=== PATIENT | male | born 1950 | race Caucasian/White ===

== ENCOUNTER 2021-11-30 09:36 | Observation (INO) ==
[2021-11-30 10:16] LABS: Bilirubin,Urine Negative (Negative); Blood,Urine Negative (Negative); Clarity,Urine Clear (Clear); Color,Urine Yellow (Yellow); Glucose,Urine (UA) 70 mg/dL (Normal); Ketones,Urine Trace mg/dL (Negative); Leukocyte Esterase,Urine Negative (Negative); Mucus,Urine Few per lpf (None-Few); Nitrite,Urine Negative (Negative); PH,Urine 5.5 pH Units (5.0-8.0); Protein,Urine 30 mg/dL (Neg-Trace); RBC,Urine 0-3 per hpf (0-3); Specific Gravity,Urine 1.029 (1.010-1.025); WBC,Urine 0-3 per hpf (0-3)
[2021-11-30 10:35] LABS: Basophils # 0.1 K/mcL (0.0-0.2); Basophils % 0.9 %; Eosinophils # 0.4 K/mcL (0.0-0.6); Eosinophils % 6.3 %; Hematocrit 22.2 % (37.5-50.1); Hemoglobin 6.7 g/dL (12.9-16.9); Immature Granulocytes % 0.4 % (0-4); Lymphocytes # 1.9 K/mcL (0.6-4.6); Lymphocytes % 34.8 %; Mean Corpuscular HGB Conc 30.2 g/dL (31.6-35.5); Mean Corpuscular Hemoglobin 30.2 pg (28.0-33.3); Mean Platelet Volume 9.3 fL (9.4-12.4); Monocytes # 0.5 K/mcL (0.0-1.3); Monocytes % 8.1 %; Neutrophils # 2.8 K/mcL (1.6-8.9); Platelet Count 218 K/mcL (140-400); Red Blood Count 2.22 M/mcL (4.19-5.50); Red Cell Distribution Width 14.8 % (11.5-14.5); Segmented Neutrophils % 49.5 %; White Blood Count 5.6 K/mcL (4.3-11.1)
[2021-11-30] MEDS ORDERED: Isovue-370 500 ML BOTTLE IVP ONE (10:38)
[2021-11-30 10:42] LABS: Prothrombin Time 11.3 Seconds (9.4-12.1)
[2021-11-30 10:58] LABS: BUN/Creatinine Ratio 19 (6-26); Blood Urea Nitrogen 25 mg/dL (8-23); Calcium 8.7 mg/dL (8.6-10.3); Carbon Dioxide 23 mEq/L (23-29); Chloride 108 mEq/L (98-107); Glucose 165 mg/dL (70-105); Osmolality,Calculated 294 (280-300); Potassium 4.7 mEq/L (3.5-5.1); Sodium 138 mEq/L (136-145); Troponin I < 0.03 ng/mL (< 0.04); eGFR For African Americans > 60 (> 60); eGFR For Non-African Americans 55 (> 60)
[2021-11-30] MEDS ORDERED: 0.9 % Sodium Chloride 250 ML ONE (12:01)
[2021-11-30] MEDS ORDERED: Melatonin 3 MG TABLET PO PRN (13:26)
[2021-11-30] MEDS ORDERED: Acetaminophen 325 MG TABLET PO PRN (13:26)
[2021-11-30] MEDS ORDERED: Ondansetron ODT 4 MG TAB.RAPDIS SL PRN (13:26)
[2021-11-30] MEDS ORDERED: Naloxone 0.4 MG/ML INJ IVP PRN (13:26)
[2021-11-30] MEDS ORDERED: *HR* Dextrose 50 % in Water (Syg) 50 ML SYRINGE IVP PRN (13:29)
[2021-11-30] MEDS ORDERED: D5% in Water 1,000 ML IVC PRN (13:29)
[2021-11-30] MEDS ORDERED: Dextrose 4 GM Chewable Tablets PO PRN ×2 (13:29)
[2021-11-30] MEDS: Insulin LISPRO 300 UNITS/3 ML VIAL SUBQ SCH (17:38)
[2021-11-30] MEDS ORDERED: Insulin LISPRO 300 UNITS/3 ML VIAL SUBQ SCH (18:00)
[2021-11-30] MEDS: Gabapentin 300 MG CAPSULE PO SCH (21:10)
[2021-12-01 05:24] VITALS: TEMP 98.1
[2021-12-01 06:16] LABS: Basophils # 0.1 K/mcL (0.0-0.2); Basophils % 1.2 %; Eosinophils # 0.3 K/mcL (0.0-0.6); Eosinophils % 6.1 %; Hematocrit 27.8 % (37.5-50.1); Immature Granulocytes % 0.4 % (0-4); Lymphocytes # 1.8 K/mcL (0.6-4.6); Mean Corpuscular Hemoglobin 30.5 pg (28.0-33.3); Mean Corpuscular Volume 95.2 fL (83.0-100.0); Monocytes # 0.4 K/mcL (0.0-1.3); Monocytes % 8.7 %; Neutrophils # 2.3 K/mcL (1.6-8.9); Platelet Count 198 K/mcL (140-400); Red Blood Count 2.92 M/mcL (4.19-5.50); Red Cell Distribution Width 15.4 % (11.5-14.5); Segmented Neutrophils % 47.6 %; White Blood Count 4.9 K/mcL (4.3-11.1)
[2021-12-01 06:17] LABS: Hemoglobin 8.9 g/dL (12.9-16.9)
[2021-12-01 06:22] LABS: INR 1.1; Prothrombin Time 11.9 Seconds (9.4-12.1)
[2021-12-01 06:35] LABS: Alanine Aminotransferase 18 Units/L (7-52); Albumin 3.9 g/dL (3.5-5.7); Albumin/Globulin Ratio 1.6 (1.1-2.2); Alkaline Phosphatase 44 Units/L (34-104); Aspartate Amino Transferase 27 Units/L (13-39); BUN/Creatinine Ratio 17 (6-26); Bilirubin,Total 0.7 mg/dL (0.3-1.0); Blood Urea Nitrogen 17 mg/dL (8-23); Calcium 8.7 mg/dL (8.6-10.3); Carbon Dioxide 26 mEq/L (23-29); Chloride 108 mEq/L (98-107); Globulin 2.5 g/dL (2.4-3.5); Glucose 97 mg/dL (70-105); Magnesium 1.2 mg/dL (1.6-2.6); Osmolality,Calculated 291 (280-300); Potassium 4.4 mEq/L (3.5-5.1); Sodium 140 mEq/L (136-145); Total Protein 6.4 g/dL (6.4-8.9); eGFR For African Americans > 60 (> 60); eGFR For Non-African Americans > 60 (> 60)
[2021-12-01] MEDS: Insulin LISPRO 300 UNITS/3 ML VIAL SUBQ SCH (07:46)
[2021-12-01] MEDS ORDERED: Isosorbide MONOnitrate (24 HR) 30 MG TAB.ER.24H PO SCH (09:00)
[2021-12-01] MEDS ORDERED: Aspirin Enteric Coated 81 MG Tablet PO SCH (09:00)
[2021-12-01 09:47] LABS: Hematocrit 31.2 % (37.5-50.1); Hemoglobin 10.1 g/dL (12.9-16.9)
[2021-12-01] MEDS: Gabapentin 300 MG CAPSULE PO SCH (09:59)
[2021-12-01 22:05] VITALS: BP 132/72; PULSE 67; O2SAT 92
== END 2021-12-01 12:24 | disposition home or self-care (01) ==
LOC: 3ANU 09:36 → EMEROOARM 09:36 → SUATTDRO 14:34 → 3ANU 16:41
PROVIDERS: ADMIT Internal Medicine; ATTEND Internal Medicine